=== PATIENT | female | born 1980 | race Caucasian/White ===

== ENCOUNTER 2016-11-24 09:28 | Outpatient (CLI) | payer BC ==
[2016-11-24 10:27] LABS: Bilirubin Negative (Negative); Blood, Urine Negative (Negative); Glucose, Urine (Dipstick) Negative (Negative); Ketone, Urine Negative (Negative); Nitrite Negative (Negative); Protein, Urine (Dipstick) Negative (Neg-Trace); Urobilinogen 0.2 mg/dL (0.2-1.0)
[2016-11-24 10:43] LABS: Bacteria/HPF Rare-Few HPF (None Seen); RBC/HPF None Seen HPF (0-3); Squamous Epithelial None Seen HPF (0-3); WBC/HPF 0-3 HPF (0-3)
== END 2016-11-24 09:29 | disposition home or self-care (01) ==
LOC: NAV LABSP 09:28
PROVIDERS: ATTEND Internal Medicine
DX: N39.0 Urinary tract infection, site not specified (principal)
CPT/HCPCS: 81001; 87077; 87086

== ENCOUNTER 2019-02-01 09:54 | Outpatient (CLI) | payer BC ==
--- NOTE | 2019-02-01 11:28 | RAD ---
TWO VIEWS OF RIGHT KNEE: COMPARISON: None. HISTORY: Bilateral knee pain. FINDINGS: Two views of the right knee show no evidence of acute fracture or dislocation. No knee effusion is s een. No degenerative changes are present. IMPRESSION: Unremarkable exam. POS: [facility]
--- NOTE | 2019-02-01 11:28 | RAD ---
TWO VIEWS OF THE LEFT KNEE: COMPARISON: None. HISTORY: Left knee pain. FINDINGS: Two views of the left knee show no evidence of acute fracture or dislocation. No degenerative change s are seen. No knee effusion is seen. IMPRESSION: Unremarkable exam. POS: [facility]
--- NOTE | 2019-02-01 11:29 | RAD ---
SINGLE STANDING VIEW OF BOTH KNEES: HISTORY: Bilateral knee pain. FINDINGS: A single standing view of both knees shows no evidence of acute fracture or dislocation. No degenera tive changes are seen. IMPRESSION: Unremarkable exam. POS: [facility]
== END 2019-02-01 09:55 | disposition home or self-care (01) ==
LOC: NAV RAD 09:54
PROVIDERS: ATTEND Physical Medicine & Rehabilitation
DX: M25.561 Pain in right knee (principal); M25.562 Pain in left knee
CPT/HCPCS: 73565